=== PATIENT | male | born 1935 | race Caucasian/White ===

== ENCOUNTER 2024-08-06 15:32 | Inpatient (IN) | payer MEDICARE, OTHER, SELFPAY ==
[2024-08-05 13:44] VITALS: BP 145/75
--- NOTE | 2024-08-05 13:47 | ED.GENMED ---
ED Provider Triage
<KEITH Srinivasan - Last Filed: 08/05/24 13:49>
-
Patient seen by provider in Triage?: Seen in Triage
Attestation: A medical screening examination has been initiated by a qualified medical provider. Based on the assessment performed at this time, it has been determined that an emergent medical condition may exist and the patient has been informed
that further medical evaluation and possible additional diagnostic testing may be needed.
HPI: 89 yr old male presents to the ED for evaluation. pt has had cough, fever and SOB. Pt is on Day 4 of [facility]. Pt does have chest discomfort worse with coughing.
GENERAL: Alert , in no apparent distress
EYE: No visual abnormalities.
NECK: Trachea midline
ENT: No visible abnormalities.
LUNGS: No acute respiratory distress
NEUROLOGICAL: Alert and oriented
SKIN: Skin intact. No visible changes.
MUSCULOSKELETAL: Moving extremities normally
PSYCH: Normal and appropriate interaction.
This is a medical evaluation conducted in person to initiate diagnostic evaluation and provide initial therapeutics. Please see further documentation by the treating clinician.
History of Present Illness
<KEITH Srinivasan - Last Filed: 08/05/24 13:49>
General
Chief Complaint: Breathing Problem
Time Seen by Provider: 08/05/24 17:51
<Mode Lebron MD - Last Filed: 08/05/24 20:25>
General
Source: patient and other (Friends)
Exam Limitations: none
Nursing documentation reviewed up to this point in time: agreed with
History of Present Illness
History of Present Illness:
89-year-old male with a past medical history of A-fib on Eliquis, bladder cancer status post cystectomy and ureterostomy, prior right nephrectomy who presents to the emergency department from home where he lives alone in the community; he presents
for evaluation of worsening cough and shortness of breath. Patient reports onset of symptoms 10 days ago (07/27/2024) and they have been constant and progressive since then. He reports initially he had rhinorrhea and mild cough and symptoms were
not improving and so he went to urgent care 08/01/2024�there he was diagnosed with acute bronchitis and was started on azithromycin as well as cough medication. He says that he has been using these but has not noticed any improvement in fact his
symptoms have significantly worsened over the past few days. He says he is now having a hacking cough although still nonproductive. He says that he feels congestion and tightness in his chest. He says that he feels short of breath. He has not
had any vomiting. No diarrhea. No swelling in the legs. He denies any other complaints.
Review of Systems
<Mode Lebron MD - Last Filed: 08/05/24 20:25>
Review of Systems
All Other Systems: ROS reviewed and negative except as documented in HPI and ROS
Constitutional: Reports fever and chills
EENT: Reports runny nose; Denies sore throat
Respiratory: Reports cough and trouble breathing
Cardiac: Reports chest pain (Tightness); Denies palpitations
ABD/GI: Denies abdominal pain, nausea or vomiting
: Denies flank pain
Musculoskeletal: Denies edema, neck pain or back pain
Neurological: Denies headache
Phy Exam
<Mode Lebron MD - Last Filed: 08/05/24 20:25>
Physical Exam
Physical Exam:
General: Awake, alert, oriented x3; no acute distress
Head: Normocephalic, atraumatic
Eyes: Conjunctiva normal
Throat: Airway intact, handling secretions
Neck: Trachea midline, no JVD
Lungs: Acceptable respiratory rate and pulse ox; scattered wheezing bilaterally
Heart: Regular rate and rhythm, no murmurs, gallops, or rubs
Abd: Soft, non distended, nontender, ureterostomy in place
Neuro: No gross deficits
Extremities: No edema in extremities, warm and well-perfused
Scores
<Mode Lebron MD - Last Filed: 08/05/24 20:25>
Heart Failure Risk
Heart Failure Risk Score: Not Applicable
Heart Score for Chest Pain Patients
STEMI patient?: Not applicable
Withdrawal Assessment of Alcohol
Withdrawal Assessment Completed?: Not applicable
Course
<KEITH Srinivasan - Last Filed: 08/05/24 13:49>
Orders/Labs/Results
Orders:
Orders
08/05/24 13:47
Chest [CR Chest - 2 Views ] Urgent
Comment:
Reason For Exam: cough
08/05/24 13:48
EKG [Electrocardiogram (*1)] Urgent
Reason for Study: Shortness of Breath
EKG- Treatment ONCE
08/05/24 13:56
COVID-19 Antigen Urgent
Source: Nasal Swab
Complete Blood Count/With Diff Urgent
Comprehensive Metabolic Panel Urgent
Influenza A+B Rapid Molecular Urgent
LESLIE Source: Nasal Swab
Specimen Description:
08/05/24 17:54
CT Chest W/o Iv Contrast Urgent
Comment:
Reason For Exam: persistent cough, eval for pneumonia
08/05/24 19:11
Acetaminophen [Tylenol] 1,000 mg PO NOW STA
08/05/24 20:18
Ipratropium/Albuterol Sulfate [Duoneb] 3 ml INH R NOW STA
MethylPREDNISolone PF [Solu-Medrol Pf] 125 mg IV NOW STA
Abnormal Lab Results
08/05/24
13:56
WBC 13.3 H 10^3/uL
(4.8-10.8)
RBC 3.33 L 10^6/uL
(4.70-6.10)
Hgb 11.7 L g/dL
(13.0-18.0)
Hct 33.5 L %
(39.0-52.0)
MCV 100.6 H fL
(80.0-94.0)
MCH 35.1 H pg
(27.0-31.0)
RDW 16.6 H %
(11.5-14.5)
Abs Immat Gran (auto) 0.1 H 10^3/uL
(0-0.05)
Absolute Neuts (auto) 10.0 H 10^3/uL
(1.4-6.5)
Absolute Lymphs (auto) 0.9 L 10^3/uL
(1.2-3.4)
Absolute Monos (auto) 2.1 H 10^3/uL
(0.1-0.6)
Immature Gran % 1.0 H %
(0-0.5)
Lymphocytes % 6.4 L %
(20.5-51.1)
Monocytes % 16.0 H %
(1.7-9.3)
Carbon Dioxide 19 L mmol/L
(22-30)
BUN 26 H mg/dl
(9-20)
Creatinine 2.0 H mg/dL
(0.7-1.3)
08/05/24 13:56
08/05/24 13:56
Vital Signs
Initial and Last Documented VS:
Initial Vital Signs
Temp Pulse Resp BP Pulse Ox
36.9 C 90 18 145/75 98
08/05/24 13:44 08/05/24 13:44 08/05/24 13:44 08/05/24 13:44 08/05/24 13:44
Last Documented Vital Signs
Temp Pulse Resp BP Pulse Ox
36.6 C 92 16 131/98 95
08/05/24 15:38 08/05/24 19:15 08/05/24 19:15 08/05/24 19:07 08/05/24 19:15
<Mode Lebron MD - Last Filed: 08/05/24 20:25>
Orders/Labs/Results
Orders:
Orders
08/05/24 13:47
Chest [CR Chest - 2 Views ] Urgent
Comment:
Reason For Exam: cough
08/05/24 13:48
EKG [Electrocardiogram (*1)] Urgent
Reason for Study: Shortness of Breath
EKG- Treatment ONCE
08/05/24 13:56
COVID-19 Antigen Urgent
Source: Nasal Swab
Complete Blood Count/With Diff Urgent
Comprehensive Metabolic Panel Urgent
Influenza A+B Rapid Molecular Urgent
LESLIE Source: Nasal Swab
Specimen Description:
08/05/24 17:54
CT Chest W/o Iv Contrast Urgent
Comment:
Reason For Exam: persistent cough, eval for pneumonia
08/05/24 19:11
Acetaminophen [Tylenol] 1,000 mg PO NOW STA
08/05/24 20:18
Ipratropium/Albuterol Sulfate [Duoneb] 3 ml INH R NOW STA
MethylPREDNISolone PF [Solu-Medrol Pf] 125 mg IV NOW STA
Abnormal Lab Results
08/05/24
13:56
WBC 13.3 H 10^3/uL
(4.8-10.8)
RBC 3.33 L 10^6/uL
(4.70-6.10)
Hgb 11.7 L g/dL
(13.0-18.0)
Hct 33.5 L %
(39.0-52.0)
MCV 100.6 H fL
(80.0-94.0)
MCH 35.1 H pg
(27.0-31.0)
RDW 16.6 H %
(11.5-14.5)
Abs Immat Gran (auto) 0.1 H 10^3/uL
(0-0.05)
Absolute Neuts (auto) 10.0 H 10^3/uL
(1.4-6.5)
Absolute Lymphs (auto) 0.9 L 10^3/uL
(1.2-3.4)
Absolute Monos (auto) 2.1 H 10^3/uL
(0.1-0.6)
Immature Gran % 1.0 H %
(0-0.5)
Lymphocytes % 6.4 L %
(20.5-51.1)
Monocytes % 16.0 H %
(1.7-9.3)
Carbon Dioxide 19 L mmol/L
(22-30)
BUN 26 H mg/dl
(9-20)
Creatinine 2.0 H mg/dL
(0.7-1.3)
08/05/24 13:56
08/05/24 13:56
Vital Signs
Initial and Last Documented VS:
Initial Vital Signs
Temp Pulse Resp BP Pulse Ox
36.9 C 90 18 145/75 98
08/05/24 13:44 08/05/24 13:44 08/05/24 13:44 08/05/24 13:44 08/05/24 13:44
Last Documented Vital Signs
Temp Pulse Resp BP Pulse Ox
36.6 C 92 16 131/98 95
08/05/24 15:38 08/05/24 19:15 08/05/24 19:15 08/05/24 19:07 08/05/24 19:15
<Mode Lebron MD - Last Filed: 08/05/24 20:25>
MDM/Problems Addressed
Differential Diagnosis Includes:
Bronchitis, pneumonia, CHF
MDM/Problems Addressed:
89-year-old male presents for evaluation of worsening cough and shortness of breath x 10 days despite outpatient azithromycin prescribed in urgent care x 5 days. Vitals and exam as above. Labs were sent in triage including CBC which showed a
leukocytosis to 13.3. His CMP shows creatinine of 2.0�no baseline for comparison. COVID and flu swabs were negative. Chest x-ray was read as negative for any acute pathology; nevertheless given his clinical presentation and leukocytosis we will
send for a CT chest to rule out occult pneumonia. Continue to monitor.
CT chest no clear pneumonia noted. Clinical suspicion at this point is for acute bronchitis. Symptoms not improving after 10 days we will plan to treat with a steroid, albuterol to start. I think he does warrants admission for treatment and
trending of labs with his leukocytosis and creatinine of 2�he has prior history of nephrectomy but he is not sure what his baseline creatinine is with single kidney. Will give some IV fluids. Case discussed with hospitalist for admission.
<Mode Lebron MD - Last Filed: 08/05/24 20:25>
*Radiology
Radiology exam reviewed: preliminary read by ED provider and radiology read reviewed
*Pulse Oximetry
Patient hypoxic: no
*EKG
Interpreted by ED Provider?: Yes
Heart Rate: 79
Rate: normal
Rhythm: sinus
[place]: left axis deviation
Interval: normal interval
QRS Pattern: right bundle branch block (Bifascicular block)
Ischemia: no ischemia
*Critical Care Note
Total Time (30-74mins, 75-104mins- exclusive of procedures): Not Applicable
Data Reviewed
Source: patient, ambulance crew and other (Friends)
<Mode Lebron MD - Last Filed: 08/05/24 20:25>
Patient Management
Discussion with other providers: Hospitalist (Discussed with hospitalist)
Escalation/DeEscalation of care consider admission/obs:
Admission indicated
ED Attending Note
<KEITH Srinivasan - Last Filed: 08/05/24 13:49>
-
Portions of this chart may have been created with voice recognition software.� Occasional wrong word or��sound alike� substitutions may have occurred due to the inherent limitations of voice recognition software.
Discharge Plan
Departure
Admit to doctor: Teo
Presentation/result/management discussed w/ accepting MD/DO: Hospitalist
Discharge Problem:
Acute bronchitis, EULOGIO (acute kidney injury)
Prescriptions:
No Action
azithromycin 250 mg Tablet
250 mg PO DAILY
benzonatate 100 mg Capsule
100 mg PO TID
acetaminophen [Tylenol Extra Strength] 500 mg Tablet
1,000 mg PO BID
sodium bicarbonate 650 mg Tablet
650 mg PO TID
amlodipine 10 mg Tablet
10 mg PO HS
simvastatin 5 mg Tablet
5 mg PO HS
Triphrocaps 1 mg Capsule
1 cap PO DAILY
calcitriol 0.25 mcg Capsule
0.25 mcg PO DAILY
Eliquis 2.5 mg Tablet
2.5 mg PO BID
Referrals:
NONE,* [Family Provider] -
Interventions
Interventions:
*Risk Screen - Suicide Last Done: 08/05/24 13:44
*General Assessment Last Done: 08/05/24 13:44
*Neglect/Abuse Screening Last Done: 08/05/24 13:44
ED- Fall Risk Assessment Last Done: 08/05/24 18:47
*ED COVID-19 Vaccine History Last Done: 08/05/24 13:44
ED- Cardiac Assessment Last Done: 08/05/24 18:47
ED- Pulmonary Assessment Last Done: 08/05/24 18:47
Discharge Date and Time
Print Language: BHUTANESE
[2024-08-05 14:23] LABS: % Basophils 0.4 % (0-2); % Eosinophils 1.3 % (0-6); % Lymphocytes 6.4 % (20.5-51.1); % Neutrophils 74.9 % (42.2-75.2); Absolute Basophils 0.1 10^3/uL (0-0.2); Absolute Eosinophils 0.2 10^3/uL (0-0.7); Absolute Immature Granulocytes 0.1 10^3/uL (0-0.05); Absolute Lymphocytes 0.9 10^3/uL (1.2-3.4); Absolute Monocytes 2.1 10^3/uL (0.1-0.6); Hematocrit 33.5 % (39.0-52.0); Hemoglobin 11.7 g/dL (13.0-18.0); Mean Corp Hgb Conc. 34.9 g/dL (33.0-37.0); Mean Corpuscular Hgb 35.1 pg (27.0-31.0); Mean Corpuscular Volume 100.6 fL (80.0-94.0); Mean Platelet Volume 8.8 fL (7.4-10.4); Nucleated Red Blood Cells % 0 % (-); Platelet Count 185 10^3/uL (130-400); Red Blood Cell Count 3.33 10^6/uL (4.70-6.10); Red Cell Dist. Width 16.6 % (11.5-14.5); White Blood Cell Count 13.3 10^3/uL (4.8-10.8)
[2024-08-05 14:24] LABS: ALT (SGPT) 17 U/L (0-50); AST (SGOT) 25 U/L (17-59); Albumin 4.6 g/dl (3.5-5.0); Alkaline Phosphatase 70 U/L (38-126); Blood Urea Nitrogen 26 mg/dl (9-20); Calcium 8.7 mg/dl (8.4-10.2); Carbon Dioxide 19 mmol/L (22-30); Chloride 105 mmol/L (98-107); Glucose 89 mg/dl (70-99); Potassium 4.1 mmol/L (3.5-5.1); Sodium 138 mmol/L (135-145); Total Protein 7.4 g/dl (6.3-8.2); eGFR 31.31
[2024-08-05 14:36] LABS: COVID-19 Antigen Negative (Negative)
[2024-08-05 15:38] VITALS: BP 141/74
[2024-08-05 19:07] VITALS: BP 131/98
[2024-08-05] MEDS: TYLENOL 1000 MG PO (19:21)
[2024-08-05 20:00] VITALS: BP 108/66
[2024-08-05] MEDS: SOLU-MEDROL PF 125 MG IV (20:35)
[2024-08-05] MEDS: NSS 1000 IV ×2 (20:35→22:20)
[2024-08-05] MEDS: DUONEB 3 ML INH (20:35)
[2024-08-05 20:37] VITALS: BMI 26.8
--- NOTE | 2024-08-05 20:44 | HPS.HSE ---
Family Physician
-
Family Physician: * NONE
Chief Complaint
-
cough
History of Present Illness
89-year-old male past medical history of atrial fibrillation on Eliquis, bladder cancer status post cystectomy and ureterostomy, prior right nephrectomy, presenting with cough, fever and shortness of breath starting 10 days ago with progressive
symptoms. He was started on azithromycin pack 4 days ago after being diagnosed with acute bronchitis. He does have chest discomfort with coughing. Symptoms of gotten worse since starting azithromycin. He has nonproductive cough. He has chest
congestion and tightness. Denies vomiting or diarrhea. Denies swelling in the legs.
Denies any history of lung problems.
He drinks alcohol few times a week. He is a former smoker.
Medical History
Past Medical History
Past Medical History: Reports Other (atrial fibrillation on Eliquis, bladder cancer status post cystectomy and ureterostomy, prior right nephrectomy,)
Past Surgical History: Reports None
Social History
Tobacco: Former Smoker
Alcohol: Occasional
Drug: None
Family History
Family History: Not pertinent
Allergies / Home Medications
Allergies reflects when Allergies were last updated in [employer].
Home Medications with original date entered in [employer]
Allergy/Medication List:
Allergies
Allergy/AdvReac Type Severity Reaction Status Date / Time
No Known Allergies Allergy Unverified 08/05/24 13:38
Home Medications
acetaminophen 500 mg tablet (Tylenol Extra Strength) 1,000 mg PO BID 08/05/24
amlodipine 10 mg tablet 10 mg PO HS 08/05/24
apixaban 2.5 mg tablet (Eliquis) 2.5 mg PO BID 08/05/24
azithromycin 250 mg tablet 250 mg PO DAILY 08/05/24
benzonatate 100 mg capsule 100 mg PO TID 08/05/24
calcitriol 0.25 mcg capsule 0.25 mcg PO DAILY 08/05/24
simvastatin 5 mg tablet 5 mg PO HS 08/05/24
sodium bicarbonate 650 mg tablet 650 mg PO TID 08/05/24
vitamin B complex and vitamin C no.20-folic acid 1 mg capsule (Triphrocaps) 1 cap PO DAILY 08/05/24
Review of Systems
-
History Source: Patient
A 12 point ROS was completed and negative except as noted: Yes
Constitutional: Reports No Symptoms
EENT: Reports No Symptoms
Respiratory: Reports See HPI
Cardiac: Reports No Symptoms
Abdomen/GI: Reports No Symptoms
: Reports No Symptoms
Musculoskeletal: Reports No Symptoms
Skin: Reports No Symptoms
Neurological: Reports No Symptoms
Endocrine: Reports No Symptoms
Hematologic/Lymphatic: Reports No Symptoms
Psych: Reports No Symptoms
Physical Exam
Vital Signs
Vital Signs
Temp Pulse Resp BP Pulse Ox
98 F 92 16 131/98 95
08/05/24 15:38 08/05/24 19:15 08/05/24 19:15 08/05/24 19:07 08/05/24 19:15
Physical Exam
General: Well Developed, Well Nourished and No Apparent Distress
HEENT: NormoCephalic, Moist mucous membranes and Atraumatic
Respiratory: Clear
Cardiac: S1/S2 and Regular Rhythm; No Murmur or Rub
GI: Soft, Non Tender, Non Distended and Normal Bowel Sounds; No Organomegaly
Rectal: Deferred by Provider
Musculoskeletal: No Clubbing, No Cyanosis and No Edema
Skin: No Rash
Neuro: Nonfocal/grossly intact
Laboratory Results
-
08/05/24 13:56
08/05/24 13:56
Laboratory Results
Total Bilirubin 1.0 mg/dl (0.2-1.3) 08/05/24 13:56
AST 25 U/L (17-59) 08/05/24 13:56
ALT 17 U/L (0-50) 08/05/24 13:56
Alkaline Phosphatase 70 U/L (38-126) 08/05/24 13:56
Data Reviewed
-
Lab Data: Labs Reviewed by me
Old Records: Reviewed
Impression/Plan
-
IMPRESSION:
PLAN:
# Sepsis (leukocytosis, tachycardia) secondary to acute bronchitis
-CT PE shows no cardiopulmonary disease
-COVID and influenza negative
-DuoNebs every 6 hours
-Dexamethasone 4 every 12
-Guaifenesin
-Continue benzonatate
# EULOGIO on CKD versus CKD
# Solitary left kidney
-Creatinine of 2, no prior baseline
-Likely with CKD since on sodium bicarbonate and calcitriol
-IV fluids
Paroxysmal atrial fibrillation
-Continue Eliquis
Essential hypertension
-Continue amlodipine
Bladder cancer status post cystectomy/ureterostomy/right nephrectomy
Presumably chronic anemia
-Hemoglobin 11.7
Full code
DVT prophylaxis�Eliquis
Regular diet
[2024-08-05 21:00] VITALS: BP 125/61
[2024-08-05 22:00] VITALS: BP 140/71
[2024-08-05] MEDS: TESSALON PERLES 100 MG PO (22:33)
[2024-08-05] MEDS: SODIUM BICARBONATE 650 MG PO (22:33)
[2024-08-05] MEDS: NORVASC 10 MG PO (22:33)
[2024-08-05] MEDS: DECADRON IV (22:50)
[2024-08-06] VITALS (22 sets, daily range): BP systolic 104–162; BP diastolic 60–117; BMI 26.8; BMI 26.7
[2024-08-06 06:39] LABS: % Basophils 0.1 % (0-2); % Immature Granulocytes 1.5 % (0-0.5); % Lymphocytes 4.6 % (20.5-51.1); % Monocytes 3.5 % (1.7-9.3); % Neutrophils 90.3 % (42.2-75.2); Absolute Immature Granulocytes 0.2 10^3/uL (0-0.05); Absolute Lymphocytes 0.5 10^3/uL (1.2-3.4); Absolute Monocytes 0.4 10^3/uL (0.1-0.6); Hematocrit 31.4 % (39.0-52.0); Hemoglobin 11.2 g/dL (13.0-18.0); Mean Corp Hgb Conc. 35.7 g/dL (33.0-37.0); Mean Corpuscular Hgb 35.7 pg (27.0-31.0); Mean Platelet Volume 8.4 fL (7.4-10.4); Nucleated Red Blood Cells % 0 % (-); Platelet Count 160 10^3/uL (130-400); Red Blood Cell Count 3.14 10^6/uL (4.70-6.10); Red Cell Dist. Width 16.3 % (11.5-14.5)
[2024-08-06 07:01] LABS: ALT (SGPT) 16 U/L (0-50); AST (SGOT) 23 U/L (17-59); Albumin 3.9 g/dl (3.5-5.0); Alkaline Phosphatase 63 U/L (38-126); Blood Urea Nitrogen 22 mg/dl (9-20); Calcium 8.2 mg/dl (8.4-10.2); Carbon Dioxide 17 mmol/L (22-30); Chloride 108 mmol/L (98-107); Estimated Creatinine Clearance 32 ml/min; Glucose 174 mg/dl (70-99); Potassium 4.3 mmol/L (3.5-5.1); Sodium 137 mmol/L (135-145); Total Bilirubin 0.5 mg/dl (0.2-1.3); Total Protein 6.8 g/dl (6.3-8.2); eGFR 44.23
[2024-08-06] MEDS: DUONEB 3 ML INH ×4 (07:32→20:10)
[2024-08-06] MEDS: TYLENOL 1000 MG PO ×2 (09:41→20:44)
[2024-08-06] MEDS: SODIUM BICARBONATE 650 MG PO ×3 (09:41→20:45)
[2024-08-06] MEDS: ZITHROMAX 250 MG PO (09:41)
[2024-08-06] MEDS: TESSALON PERLES 100 MG PO ×3 (09:41→20:45)
[2024-08-06] MEDS: DECADRON 4 MG IV ×2 (09:41→20:45)
[2024-08-06] MEDS: ROCALTROL 0.25 MCG PO (09:42)
[2024-08-06] MEDS: ELIQUIS 2.5 MG PO ×2 (09:42→20:45)
[2024-08-06] MEDS: NEPHROCAP 1 CAPSULE PO (09:42)
[2024-08-06] MEDS: NSS 1000 IV (12:33)
--- NOTE | 2024-08-06 13:31 | PTCARENOTE ---
pt aaox3. states no pain and improvement with breathing. room air 96%. pt feels like he needs one more day with breathing treatments before he goes home.
[2024-08-06] MEDS: TYLENOL 650 MG PO (15:14)
--- NOTE | 2024-08-06 15:21 | W.PN.HOSP.TC ---
Today's Communication/Plan
-
See plan
Assessment / Plan
Assessment / Plan
Impression:
Presentation with persistent cough, subjective shortness of breath and upper respiratory symptoms.
Acute asthmatic bronchitis.
Acute kidney injury
Acute on chronic metabolic acidosis
Other conditions:
Paroxysmal atrial fibrillation
Anticoagulation with Eliquis
Essential hypertension
Bladder carcinoma status post cystectomy, urostomy, right nephrectomy.
Chronic anemia.
Plan:
Acute asthmatic bronchitis.
Sepsis ruled out.
Patient with stable respiratory status, hemodynamically stable, although with persistent symptoms including severe cough, mild bronchospasm on exam.
Chest x-ray and CT scan of the chest with no evidence of parenchymal abnormalities.
Expand antibiotics with addition of ceftriaxone and continue Zithromax
Continue systemic steroids
Continue short acting bronchodilators.
Physical therapy assessment.
Acute kidney injury
Suspect CKD in patient with solitary kidney and urostomy.
Suspect chronic metabolic acidosis.
Creatinine improving with IV fluid bolus.
IV fluids and monitor oral intake
Paroxysmal atrial fibrillation
-Continue Eliquis
Essential hypertension
-Continue amlodipine
Bladder cancer status post cystectomy/ureterostomy/right nephrectomy
Presumably chronic anemia
-Hemoglobin 11.7
Full code
DVT prophylaxis�Eliquis
Regular diet
Anticipated Discharge: 24 - 48 hours
Subjective/Interval History
-
Date of Service: August 06, 2024
Objective Data
-
Labs:
Laboratory Results
08/06/24
06:26
WBC 10.0
Hgb 11.2 L
Hct 31.4 L
Plt Count 160
Sodium 137
Potassium 4.3
Chloride 108 H
Carbon Dioxide 17 L
BUN 22 H
Creatinine 1.5 H
Glucose 174 H
Calcium 8.2 L
Total Bilirubin 0.5
AST 23
ALT 16
Alkaline Phosphatase 63
Vital Signs:
Vital Signs
Temp Pulse Resp BP Pulse Ox
98.1 F 92 22 136/66 95
08/06/24 09:00 08/06/24 13:15 08/06/24 13:15 08/06/24 12:00 08/06/24 13:30
I&O
08/05/24 08/06/24 08/07/24
06:59 06:59 06:59
Intake Total 700 / 700
Balance 700 / 700
Physical Exam
-
General: Well Developed and No Apparent Distress
HEENT: Normocephalic, Atraumatic and Moist Mucous Membranes
Respiratory: Wheezes and Rhonchi
Cardiac: Regular Rhythm and S1/S2; Negative Murmur, Rub or Gallop
GI: Soft, Nontender, Nondistended and Normal Bowel Sounds; Negative Organomegaly
Rectal: Deferred by Provider
Musculoskeletal: No Clubbing, No Cyanosis and No Edema
Skin: Negative Rash
Neuro: Nonfocal/Grossly Intact
[2024-08-06] MEDS: ROCEPHIN 1000 MG IV (16:11)
[2024-08-06] MEDS: STERILE WATER FOR INJECTION 10 ML IV (16:11)
[2024-08-06] MEDS: LIPITOR 10 MG PO (18:40)
--- NOTE | 2024-08-06 19:59 | PTCARENOTE ---
Pt arrived onto floor @1958. Pt AAOx3 and able to walk into room w/ assistance. Pt with no complaints of pain or SOB at this time. Pt oriented to room and call carter; will continue to monitor
[2024-08-06] MEDS: NORVASC 10 MG PO (20:45)
[2024-08-07 07:00] VITALS: BP 134/71
[2024-08-07] MEDS: DUONEB 3 ML INH ×2 (07:42→11:17)
[2024-08-07 08:25] LABS: % Basophils 0.1 % (0-2); % Immature Granulocytes 1.8 % (0-0.5); % Lymphocytes 4.7 % (20.5-51.1); % Monocytes 10.7 % (1.7-9.3); % Neutrophils 82.7 % (42.2-75.2); Absolute Immature Granulocytes 0.3 10^3/uL (0-0.05); Absolute Lymphocytes 0.7 10^3/uL (1.2-3.4); Absolute Monocytes 1.5 10^3/uL (0.1-0.6); Absolute Neutrophils 11.7 10^3/uL (1.4-6.5); Hematocrit 28.6 % (39.0-52.0); Hemoglobin 10.2 g/dL (13.0-18.0); Mean Corp Hgb Conc. 35.7 g/dL (33.0-37.0); Mean Corpuscular Hgb 35.5 pg (27.0-31.0); Mean Corpuscular Volume 99.7 fL (80.0-94.0); Nucleated Red Blood Cells % 0 % (-); Platelet Count 167 10^3/uL (130-400); Red Blood Cell Count 2.87 10^6/uL (4.70-6.10); Red Cell Dist. Width 16.5 % (11.5-14.5); White Blood Cell Count 14.2 10^3/uL (4.8-10.8)
[2024-08-07 08:51] LABS: Blood Urea Nitrogen 28 mg/dl (9-20); Calcium 8.4 mg/dl (8.4-10.2); Carbon Dioxide 18 mmol/L (22-30); Chloride 106 mmol/L (98-107); Estimated Creatinine Clearance 31 ml/min; Glucose 119 mg/dl (70-99); Potassium 4.2 mmol/L (3.5-5.1); Sodium 137 mmol/L (135-145); eGFR 44.23
[2024-08-07] MEDS: ELIQUIS 2.5 MG PO (10:01)
[2024-08-07] MEDS: NEPHROCAP 1 CAPSULE PO (10:01)
[2024-08-07] MEDS: ZITHROMAX 250 MG PO (10:01)
[2024-08-07] MEDS: ROCALTROL 0.25 MCG PO (10:01)
[2024-08-07] MEDS: TYLENOL 1000 MG PO (10:01)
[2024-08-07] MEDS: TESSALON PERLES 100 MG PO (10:02)
[2024-08-07] MEDS: DECADRON 4 MG IV (10:02)
[2024-08-07] MEDS: SODIUM BICARBONATE 650 MG PO (10:02)
--- NOTE | 2024-08-07 14:40 | W.DS.TRANS ---
DC Summary - Physician Practice Market Manager
-
Discharge Instructions:
Sleep Apnea Risk High
Discharge Diagnosis/Procedures Acute asthmatic bronchitis
Diet Regular
Instructions:
Stand-Alone Forms:
Changes to Home Medications: Yes
Discharge Medications:
DC Medications w/original date entered in [employer]
acetaminophen 500 mg tablet (Tylenol Extra Strength) 1,000 mg PO BID 08/05/24
amlodipine 10 mg tablet 10 mg PO HS 08/05/24
apixaban 2.5 mg tablet (Eliquis) 2.5 mg PO BID 08/05/24
benzonatate 100 mg capsule 100 mg PO TID 08/05/24
calcitriol 0.25 mcg capsule 0.25 mcg PO DAILY 08/05/24
simvastatin 5 mg tablet 5 mg PO HS 08/05/24
sodium bicarbonate 650 mg tablet 650 mg PO TID 08/05/24
vitamin B complex and vitamin C no.20-folic acid 1 mg capsule (Triphrocaps) 1 cap PO DAILY 08/05/24
albuterol sulfate 90 mcg/actuation breath activated powder inhaler,sensor 90 mcg inhalation Q6H PRN shortness of breath #1 ea 08/07/24
azithromycin 250 mg tablet 250 mg PO DAILY #3 tabs 08/07/24
cefuroxime axetil 500 mg tablet 500 mg PO BID #10 tabs 08/07/24
prednisone 10 mg tablet 10 mg PO DIRECTED #12 tabs 08/07/24
Home Medication Changes
Steroid taper
Albuterol
Complete outpatient antibiotic course.
Pending Results: No
[2024-08-07 15:00] VITALS: BP 145/80
--- NOTE | 2024-08-07 15:29 | CM ---
vending manager reviewed patient's chart and met with patient and patient lives alone in a multilevel home, patient is independent with adl's and uses a cane or walker with ambulation, patient has been cleared for discharge today.
PCP: NO PCP, patient declined list of PCP options
Pharmacy [facility].
Plan; Home no needs.
== END 2024-08-07 15:41 | disposition home or self-care (01) | DRG 202 ==
LOC: 4 WEST ACU 15:32
PROVIDERS: Emergency Medicine; ADMITTING PHYSICIAN Hospitalist; ATTENDING PHYSICIAN Internal Medicine; EMERGENCY PHYSICIAN Emergency Medicine
DX: J45.909 Unspecified asthma, uncomplicated (principal); E87.21 Acute metabolic acidosis; N17.9 Acute kidney failure, unspecified; E87.22 Chronic metabolic acidosis; I48.0 Paroxysmal atrial fibrillation; I12.9 Hypertensive chronic kidney disease with stage 1 through stage 4 chronic kidney disease, or unspecified chronic kidney disease; N18.9 Chronic kidney disease, unspecified; Z87.891 Personal history of nicotine dependence; Z90.5 Acquired absence of kidney; Z85.51 Personal history of malignant neoplasm of bladder; Z79.01 Long term (current) use of anticoagulants; Z93.6 Other artificial openings of urinary tract status; Z59.89 Other problems related to housing and economic circumstances; Z11.52 Encounter for screening for COVID-19
CPT/HCPCS: 71046; 71250; 80048; 80053; 85025; 87502; 87811; 93005; 94640; 96374; 96375; 99285